=== PATIENT | male | born 1950 | race Caucasian/White ===

== ENCOUNTER 2017-09-18 07:51 | Observation (INO) | payer MEDICARE ==
[2017-09-14 14:50] LABS: BASOPHILS % 0.4 % (0.0-1.0); EOSINOPHILS # (AUTO) 0.1 (0.0-0.4); EOSINOPHILS % 1.5 % (0.0-6.0); HEMATOCRIT 43.4 % (38.2-49.6); HEMOGLOBIN 14.5 g/dL (14.0-18.0); LYMPHOCYTES # (AUTO) 1.5 (1.0-3.2); MEAN CORPUSCULAR HEMOGLOBIN 30.1 pg (28-32); MEAN CORPUSCULAR HGB CONC 33.4 g/dL (31-35); MONOCYTES % 13.3 % (4.4-11.3); NEUTROPHILS # (AUTO) 5.1 (2.1-6.9); NEUTROPHILS % 65.5 % (38.7-80.0); PLATELET COUNT 368 x10e3/uL (140-360); RED BLOOD COUNT 4.82 x10e6/uL (4.3-5.7); RED CELL DISTRIBUTION WIDTH 13.9 % (11.7-14.4)
[2017-09-14 15:06] LABS: INR 0.99; PROTHROMBIN TIME 12.3 seconds (11.9-14.5)
[2017-09-14 15:07] LABS: PARTIAL THROMBOPLASTIN TIME 29.2 seconds (23.8-35.5)
[2017-09-14 15:13] LABS: ALANINE AMINOTRANSFERASE 26 IU/L (0-55); ALBUMIN/GLOBULIN RATIO 1.1 (0.8-2.0); ALKALINE PHOSPHATASE 92 IU/L (40-150); ANION GAP 14.9 mmol/L (8-16); BLOOD UREA NITROGEN 13 mg/dL (7-26); BUN/CREATININE RATIO 12 (6-25); CALCIUM 9.5 mg/dL (8.4-10.2); CARBON DIOXIDE 30 mmol/L (22-29); CHLORIDE 99 mmol/L (98-107); CREATININE, SERUM 1.13 mg/dL (0.72-1.25); EST GLOMERULAR FILTRATION RATE > 60 ML/MIN (60-); GLUCOSE 105 mg/dL (74-118); POTASSIUM 4.9 mmol/L (3.5-5.1); SODIUM 139 mmol/L (136-145)
--- NOTE | 2017-09-14 15:30 | Diagnostic Imaging Report ---
PROCEDURE: Frontal and lateral views of the chest. COMPARISON: None. INDICATIONS: PRE-OP FOR BIOPSY ON PROSTATE FINDINGS: Lines/tubes: None. Lungs: The lungs are well inflated and clear. There is no evidence of pneumonia or pulmonary edema. Pleura: There is no pleural effusion or pneumothorax. Heart and mediastinum: Coronary artery stent. Mild calcifications of the aortic arch. Otherwise, the heart and the mediastinum are normal. Bones: No acute bony abnormality. Mild degenerative changes of the thoracic spine. IMPRESSION: No acute cardiopulmonary disease. Dictated by: Harrison Alberts M.D. on 09/14/2017 at 15:30 Electronically approved by: Harrison Alberts M.D. on 09/14/2017 at 15:30
[~2017-09-18] VITALS: Ht 180.3 cm; Wt 68.3 kg
[~2017-09-18 07:51] MED LIST: ASPIRIN81 MG PO; ATORVASTATIN CA20 MG PO; CLOPIDOGREL75 MG PO; LISINOPRIL2.5 MG PO; METFORMIN HCL1000 MG PO; METOPROLOL TART25 MG PO; METRONIDAZOLE500 MG PO
--- OUTSIDE RECORDS SUMMARY | 2017-09-18 07:53 | XMS REPORT | Clinical Summary ---
Author Author [facility] Organization [facility] Address Unknown Phone Unavailable Care Team Providers Care Nurse Obgyn Name Role Phone Isaac Wilson MD PCP Allergies Active Allergy Reactions Severity Noted Date Comments Penicillins 12/03/2015 Current Medications Prescription Sig. Disp. Refills Start End Date Status Date atorvastatin (LIPITOR) 40 TK ONE T HS 3 12/25/19 Active MG tablet 16 clopidogrel (PLAVIX) 75 TK ONE T DAILY 3 12/25/19 Active mg tablet 16 lisinopril TK ONE T DAILY 3 12/25/19 Active (PRINIVIL,ZESTRIL) 2.5 MG 16 tablet metFORMIN (GLUCOPHAGE) TK 1 T PO BID 1 03/05/20 Active 1000 MG tablet 16 metoprolol tartrate 2 (two) times a day. Active (LOPRESSOR) 25 MG tablet aspirin (ECOTRIN) 81 MG aspirin 81 mg Active enteric coated tablet tablet,delayed release sodium,potassium,mag Please use as directed 2 Bottle 0 04/25/20 Active sulfates (SUPREP BOWEL 16 PREP KIT) 17.5-3.13-1.6 gram recon soln Active Problems Problem Noted Date Elevated PSA 03/13/2016 Impaired fasting glucose 12/03/[address] [place] artery 12/03/2015 Family History Medical History Relation Name Comments Cancer Father Lung cancer Father No Known Problems Mother Relation Name Status Comments Father lung cancer (Age 60's) Mother Social History Tobacco Use Types Packs/Day Years Used Date Current Every Day Smoker Cigarettes 1 Smokeless Tobacco: Never Used Alcohol Use Drinks/Week oz/Week Comments Yes 21 Cans of 12.6 beer Sex Assigned at Date Recorded Not on file Last Filed Vital Signs Not on file Plan of Treatment Health Maintenance Due Date Last Done Comments COLONOSCOPY 2002 ZOSTER VACCINE 2012 INFLUENZA VACCINE 02/17/2017 PNEUMOCOCCAL 2017 POLYSACCHARIDE VACCINE AGE 65 AND OVER PNEUMOCOCCAL-13 2017 Results Not on fileafter 09/17/2016 Insurance Payer Benefit Subscriber ID Type Phone Address Plan / Group HUMANA HUMANA xxxxxxxxx PPO CHOICE CARE PPO
--- OUTSIDE RECORDS SUMMARY | 2017-09-18 07:53 | XMS REPORT ---
[facility] Address Unknown Phone Unavailable Care Team Providers Care Green Hide Inspector Name Role Phone AMBROCIO DAVIDSON Unavailable Unavailable Problems This patient has no known problems. Allergies, Adverse Reactions, Alerts This patient has no known allergies or adverse reactions. Medications This patient has no known medications. Results Test Description Test Time Test Comments Text Results Atomic Results Result Comments CHEST 2 VIEWS [place] [address] Patient Name: LATRICE GONZALEZ MR #: [id number] : 1950 Age/Sex: 67/M Req # : [id number] Adm Physician: Ordered by: AMBROCIO DAVIDSON MD Report #: [id number] Location: OR Room/Bed: Procedure: [id number] DX/CHEST 2 VIEWS Exam Date: 09/14/17 Exam Time: 1445 REPORT STATUS: Signed PROCEDURE: Frontal and lateral views of the chest. COMPARISON: None. INDICATIONS: PRE-OP FOR BIOPSY ON PROSTATE FINDINGS: Lines/tubes: None. Lungs: The lungs are well inflated and clear. There is no evidence of pneumonia or pulmonary edema. Pleura: There is no pleural effusion or pneumothorax. Heart and mediastinum: Coronary artery stent. Mild calcifications of the aortic arch. Otherwise, the heart and the mediastinum are normal. Bones: No acute bony abnormality. Mild degenerative changes of the thoracic spine. IMPRESSION: No acute cardiopulmonary disease. Dictated by: Harrison Orozco M.D. on 09/14/2017 at 15:30 Electronically approved by: Harrison Orozco M.D. on 09/14/2017 at 15:30 Dictated By: HARRISON OROZCO MD [id number] Transcribed By: SCOTT on 09/14/17 1530 COPY TO: AMBROCIO DAVIDSON MD
[2017-09-18] MEDS ORDERED: LEVOFLOXACIN 500MG/D5W 100ML 100 ML IV ONE (08:34)
[2017-09-18] MEDS ORDERED: BELLADONNA/OPIUM 60 MG SUPP PR ONE (13:11)
[2017-09-18] MEDS ORDERED: HYDROCODONE/APAP 7.5MG-325MG 1 EA TAB PO PRN (14:00)
[2017-09-18] MEDS: LEVOFLOXACIN 500MG/D5W 100ML 100 ML IV SCH (14:00)
--- NOTE | 2017-09-18 14:18 | Operative Report ---
DATE OF PROCEDURE: September 18, 2017 PREOPERATIVE DIAGNOSIS: Elevated prostate-specific antigen. POSTOPERATIVE DIAGNOSIS: Elevated prostate-specific antigen. OPERATION PERFORMED: Ultrasound-directed transrectal prostate biopsy. ANESTHESIA: General. INDICATIONS: This patient is a 67-year-old white male with a PSA of 12.2. He is here for a prostate biopsy. The procedure was done in the following fashion. DESCRIPTION OF PROCEDURE: The patient was taken to the operating room and placed under IV sedation and monitored anesthesia care and placed in the lateral decubitus position with the right side up. An ultrasound scan of the prostate was then performed. The patient had a small prostate estimated about 20 grams in size. The seminal vesicles appeared normal. No discrete hypoechoic areas were identified. Sextant biopsies of the prostate were performed through the ultrasound probe using the Pixtr spring-loaded biopsy gun. Specimens were taken from the right base lateral, then right base medial, then right mid lateral, then right mid medial, then right apex lateral, then right apex medial, then left base lateral, then left base medial, then left mid lateral, then left mid medial, then left apex lateral, then left apex medial. Once this was accomplished, the ultrasound probe was withdrawn. The patient was returned to a supine position and a 16-[place] Knott catheter inserted. The patient tolerated the procedure well and left the operating room in good condition. The plan at this time is to keep him in the hospital overnight on IV antibiotics and remove the Knott catheter in the morning. Job#: [id number]
[2017-09-18] MEDS ORDERED: FENTANYL CITRATE/PF 100MCG/2 ML INJ ONE ×2 (14:19→14:32)
[2017-09-18] MEDS ORDERED: MIDAZOLAM HCL 2 MG/2 ML VIAL ONE (14:32)
--- OUTSIDE RECORDS SUMMARY | 2017-09-18 14:33 | XMS REPORT | Clinical Summary ---
Author Author [facility] Address Unknown Phone Unavailable Care Team Providers Care Animal Care Supervisor Name Role Phone Isaac Wilson MD PCP [...] Impaired fasting glucose 12/03/2015 Coronary arteriosclerosis in [place] artery 12/03/2015 Family History Medical History Relation [...]
[2017-09-18 14:43] VITALS: BP 122/65
[2017-09-18 15:07] VITALS: BP 122/65
[2017-09-18 16:00] VITALS: BP 107/58
[2017-09-18] MEDS: SODIUM CHLORIDE 0.9% 1000ML 1,000 ML IV SCH (16:53)
[2017-09-18] MEDS: METRONIDAZOLE 500 MG TAB PO SCH ×2 (16:59→20:05)
[2017-09-18] MEDS: METOPROLOL TARTRATE 25 MG TAB PO SCH (16:59)
[2017-09-18] MEDS ORDERED: DEXTROSE 50% SYRINGE 50 ML IV PRN (17:00)
[2017-09-18] MEDS: DOCUSATE SODIUM 100 MG CAP PO SCH (17:00)
[2017-09-18] MEDS ORDERED: PROPOFOL IV EMULSION 10 MG/ML 20 ML VIAL ONE (19:51)
[2017-09-18] MEDS ORDERED: LIDOCAINE HCL 2% LOCAL INJ 5 ML SDV VIAL INJ ONE (19:51)
[2017-09-18 20:00] VITALS: BP_SYST 101; BP_SYST 151; BP_DIAS 54; BP_DIAS 59; BP_DIAS 78
[2017-09-18] MEDS ORDERED: ATORVASTATIN 20 MG TAB PO SCH (21:00)
[2017-09-18] MEDS: INSULIN REGULAR, HUMAN 100 UNIT/1 ML 3ML VIAL SQ SCH (21:00)
[2017-09-19] VITALS: BP 107/56
[2017-09-19] MEDS: SODIUM CHLORIDE 0.9% 1000ML 1,000 ML IV SCH ×2 (02:33→10:00)
[2017-09-19 04:00] VITALS: BP 107/55
[2017-09-19] MEDS: INSULIN REGULAR, HUMAN 100 UNIT/1 ML 3ML VIAL SQ SCH ×2 (07:30→11:30)
[2017-09-19 08:13] VITALS: BP 118/72
[2017-09-19] MEDS: DOCUSATE SODIUM 100 MG CAP PO SCH (08:48)
[2017-09-19] MEDS: METRONIDAZOLE 500 MG TAB PO SCH (08:48)
[2017-09-19] MEDS: METOPROLOL TARTRATE 25 MG TAB PO SCH (08:49)
[2017-09-19] MEDS ORDERED: CLOPIDOGREL BISULFATE 75 MG TAB PO SCH (09:00)
[2017-09-19] MEDS ORDERED: METFORMIN HCL 500 MG TAB CR PO SCH (09:00)
[2017-09-19] MEDS ORDERED: ASPIRIN 81 MG CHEW TAB PO SCH (09:00)
[2017-09-19] MEDS ORDERED: LISINOPRIL 2.5 MG TAB PO SCH (09:00)
[2017-09-19] MEDS ORDERED: NON-FORMULARY MEDICATION (Metformin Hcl 1,000 MG) PO SCH (09:00)
[2017-09-19 11:41] VITALS: BP 100/59
[2017-09-19] MEDS ORDERED: LEVAQUIN500 MG PO (12:19)
--- NOTE | 2017-09-19 13:44 | Progress Note ---
DATE: September 19, 2017 The patient is now one day status post ultrasound-directed transrectal prostate biopsy. He is afebrile. The Knott catheter has been removed. He is voiding without difficulty. My plan at this time is to discharge the patient. He will go home on Levaquin 500 mg one p.o. daily for 10 days and he will complete his course of Flagyl at home. He will have a return appointment to see me again in 2 weeks to go over the results of the prostate biopsy. Job#: [id number]
[2017-09-19] MEDS: LEVOFLOXACIN 500MG/D5W 100ML 100 ML IV SCH (14:00)
--- NOTE | 2017-09-19 14:27 | Consultation ---
DATE OF CONSULTATION: September 19, 2017 INTERNAL MEDICINE CONSULTATION REASON FOR CONSULTATION: Internal medicine management. HISTORY OF PRESENT ILLNESS: This is a 67-year-old male with history of diabetes and hypertension, who was admitted overnight for a prostate biopsy. The patient is being admitted under Dr. Tsang, urology in [place]. The patient reports having longstanding hypertension for many years on medications. He also has known diabetes, but well controlled on a diet and also oral metformin. He denies any chest pain, palpitations, nausea, vomiting or any other complaints. The patient is being evaluated at the bedside on the medical floor currently doing well with no complaints. REVIEW OF SYSTEMS: Pertinent positives: Here for prostate biopsy. Pertinent negatives: Denies any chest pain, palpitations, nausea, vomiting, diarrhea, dysuria, hematuria, frequency, urgency, lightheadedness, dizziness, abdominal pain, headaches, shortness of breath or any other complaints. Rest of the 14-point review of systems have been reviewed with the patient and are negative. ALLERGIES: PENICILLIN. HOME MEDICATIONS: He takes aspirin 81 mg daily, Lipitor 20 mg daily, Plavix 75 mg daily, Colace 100 mg twice daily, lisinopril 2.5 mg daily, metformin 1000 mg daily, Lopressor 25 mg p.o. b.i.d. PAST MEDICAL HISTORY: Hypertension, diabetes, hyperlipidemia. PAST SURGICAL HISTORY: Recent prostate biopsy. FAMILY HISTORY: Hypertension, diabetes. SOCIAL HISTORY: No drugs, no alcohol, currently not a smoker. Good social support. . PHYSICAL EXAMINATION VITAL SIGNS: Temperature 97, pulse 80, respiratory rate 18, blood pressure 118/72, pulse oximetry 96% on room air. GENERAL: In no acute distress, alert and oriented x3, cooperative on examination. HEENT: Head is normocephalic, atraumatic. Eyes: Pupils equal, round and reactive to light bilaterally. Extraocular movements intact bilaterally. Throat with no evidence of any erythema or exudates in the posterior pharynx. Has poor dentition. NECK: Supple with good range of motion. PULMONARY: Clear to auscultation bilaterally with no wheezing or rhonchi. No crackles appreciated. CARDIOVASCULAR: Positive S1 and S2, no murmurs, rubs or gallops appreciated. ABDOMEN: Soft, nondistended, nontender on palpation. Bowel sounds were present. MUSCULOSKELETAL: Strength 5/5 throughout, no evidence of musculoskeletal deficit on exam. No weakness appreciated. NEUROLOGIC: Cranial nerves II-XII grossly intact. No evidence of any neurological deficits on examination. SKIN: Intact. Warm to touch. Good capillary refill. EXTREMITIES: No edema. Good range of motion throughout. PSYCHIATRIC: Normal affect and mood. LABORATORY DATA: White count 7.8, hemoglobin 14.5, hematocrit 43, platelets 368,000. Coagulation: PT 12, INR 0.99, PTT 29. Chemistry: Sodium 139, potassium 4.9, chloride 99. Bicarb is 30. Anion gap of 14. BUN 13, creatinine 1.1. Glucose ____ is 100. Calcium 9.5. LFTs are normal. BUN is 4. Microbiology: None. IMAGING: Chest x-ray with no acute cardiopulmonary disease. IMPRESSION 1. Status post prostate biopsy, being managed by urology, now with Knott catheter removal. 2. Hypertension. 3. Type 2 diabetes. 4. Hyperlipidemia. PLAN: Continue same home meds of antihypertensives and anti-glycemic medications. Labs were reviewed and are stable. Currently, his glucose is well managed, and his blood pressure is stable. Will continue the same regimen. Continue with antibiotics per urology. From my standpoint, he is clear to be discharged once cleared by urology. Thank you so much for this consultation. Job#: [id number] JUAQUIN
== END 2017-09-19 14:05 | disposition home or self-care (01) ==
LOC: OR 07:51 → IMCU 14:30
PROVIDERS: ADMIT Urology; ATTEND Urology
DX: R97.20 Elevated prostate specific antigen [PSA] (principal); N41.0 Acute prostatitis; K64.4 Residual hemorrhoidal skin tags; I25.10 Atherosclerotic heart disease of native coronary artery without angina pectoris; E11.9 Type 2 diabetes mellitus without complications; I10 Essential (primary) hypertension; Z88.0 Allergy status to penicillin; E78.5 Hyperlipidemia, unspecified; N41.1 Chronic prostatitis
CPT/HCPCS: 36415 ×3; 55700; 71046; 76872; 76942; 80053; 82948 ×2; 85025; 85610; 85730; 88305; G0378 ×2; J1956 ×2; J2001; J2250; J7030 ×2

== ENCOUNTER 2018-11-26 10:41 | Observation (INO) | payer BC, MEDICARE ==
[2018-11-22 12:51] LABS: INR 0.81; PARTIAL THROMBOPLASTIN TIME 28.1 seconds (23.8-35.5); PROTHROMBIN TIME 11.6 seconds (11.9-14.5)
[2018-11-22 13:01] LABS: ALANINE AMINOTRANSFERASE 34 IU/L (0-55); ALBUMIN 3.7 g/dL (3.5-5.0); ALBUMIN/GLOBULIN RATIO 1.1 (0.8-2.0); ALKALINE PHOSPHATASE 110 IU/L (40-150); ANION GAP 12.6 mmol/L (8-16); BLOOD UREA NITROGEN 13 mg/dL (7-26); BUN/CREATININE RATIO 13 (6-25); CALCIUM 10.1 mg/dL (8.4-10.2); CARBON DIOXIDE 30 mmol/L (22-29); CHLORIDE 98 mmol/L (98-107); CREATININE, SERUM 1.02 mg/dL (0.72-1.25); EST GLOMERULAR FILTRATION RATE > 60 ML/MIN (60-); GLUCOSE 91 mg/dL (74-118); POTASSIUM 4.6 mmol/L (3.5-5.1); SODIUM 136 mmol/L (136-145)
--- NOTE | 2018-11-22 13:24 | Diagnostic Imaging Report ---
EXAMINATION: PA and lateral views of the chest. COMPARISON: None CLINICAL HISTORY: Preoperative study for urological procedure DISCUSSION: Lines/tubes: None. Lungs: The lungs are well inflated and clear. There is no evidence of pneumonia or pulmonary edema. Symmetric nodular opacities project over the lung bases compatible with nipple shadows Pleura: There is no pleural effusion or pneumothorax. Heart and mediastinum: The cardiomediastinal silhouette is normal. Coronary artery stents. Bones and soft tissues: No acute bony abnormalities. Degenerative changes in the thoracic spine IMPRESSION: No acute cardiopulmonary abnormalities. Signed by: Dr. Sj Portillo M.D. on 11/22/2018 1:21 PM
[~2018-11-26] VITALS: Ht 180.3 cm; Wt 65.8 kg
[~2018-11-26 10:41] MED LIST changes: +LEVAQUIN500 MG PO
--- OUTSIDE RECORDS SUMMARY | 2018-11-26 10:44 | XMS REPORT | Clinical Summary ---
Author Author [facility] Organization [facility] Address Unknown Phone Unavailable Care Team Providers Care Electronic Semiconductor Processor Name Role Phone Kesha Arteaga MD PCP Allergies Comments Active Allergy Reactions Severity Noted Date Penicillins 12/03/2015 Medications End Date Status Medication Sig Dispensed Refills Start Date Active clopidogrel (PLAVIX) 75 TK ONE T 3 mg tablet DAILY 6 Active lisinopril TK ONE T 3 (PRINIVIL,ZESTRIL) 2.5 MG DAILY 6 tablet Active metFORMIN (GLUCOPHAGE) TK 1 T PO BID 1 1000 MG tablet 6 Active metoprolol tartrate 2 (two) times 0 (LOPRESSOR) 25 MG tablet a day. Active aspirin (ECOTRIN) 81 MG aspirin 81 mg 0 enteric coated tablet tablet,delaye d release Active atorvastatin (LIPITOR) 20 Bedtime 0 MG tablet Active budesonide-formoterol Inhale 2 1 Inhaler 3 (SYMBICORT) 160-4.5 puffs 2 (two) 8 mcg/actuation inhaler times a day. Active varenicline (CHANTIX ELAINA) Take 0.5 mg 53 tablet 0 0.5 mg (11)- 1 mg (42) one daily on 8 tablet days 1-2 and 0.5 mg twice daily on days 4-7. Then 1 mg twice daily for a total of 12 weeks. Active tiotropium-olodaterol Take 2 4 g 6 (STIOLTO RESPIMAT) inhalations 8 2.5-2.5 mcg/actuation by mouth once inhalation solution daily. 05/18/2019 Active albuterol (PROAIR Inhale 2 18 g 11 HFA,PROVENTIL puffs every 6 8 HFA,VENTOLIN HFA) 90 (six) hours mcg/actuation inhaler as needed for wheezing. 05/05/2018 Discontinued atorvastatin (LIPITOR) 40 TK ONE T HS 3 MG tablet 6 05/18/2018 Discontinued sodium,potassium,mag Please use as 2 Bottle 0 sulfates (SUPREP BOWEL directed 6 PREP KIT) 17.5-3.13-1.6 gram recon soln 05/18/2018 Discontinued metroNIDAZOLE (FLAGYL) Three Times A 0 500 MG tablet Day 06/17/2018 nicotine (NICODERM CQ) 21 Place 1 patch 30 patch 0 mg/24 hr on the skin 8 daily for 30 days. Active Problems Problem Noted Date Other emphysema 05/05/2018 Elevated PSA 03/13/2016 Impaired fasting glucose 12/03/2015 Coronary arteriosclerosis in [place] artery 12/03/2015 Encounters Care Team Description Date Type Specialty Mark Tovar MD Smoking (Primary Dx) 08/18/2018 Office Visit Pulmonology Mark Tovar MD History of smoking 30 or more pack years 05/21/2018 Hospital Radiology Encounter Mark Tovar MD Abnormal PFTs (pulmonary function tests); History of smoking 30 or more pack years 05/18/2018 Office Visit Pulmonology Kesha Arteaga MD Abnormal PFTs (pulmonary function tests) (Primary Dx); History of smoking 30 or more pack years 05/05/2018 Office Visit Family Medicine Silvano Yoo MD Shortness of breath 04/23/2018 Hospital Radiology Encounter Silvano Yoo MD Shortness of breath 04/23/2018 Hospital Pulmonology Encounter Silvano Yoo MD Shortness of breath (Primary Dx) 04/20/2018 Transcribe Access Orders after 11/25/2017 Family History Medical History Relation Name Comments Cancer Father Lung cancer Father No Known Problems Mother Relation Name Status Comments Father lung cancer (Age 60's) Mother Social History Date Tobacco Use Types Packs/Day Years Used Started: 05/18/1970 Current Every Day Smoker Cigarettes 1 Smokeless Tobacco: Never Used Comments: 1 pack per day Alcohol Use Drinks/Week oz/Week Comments Yes 21 Cans of 12.6 beer Sex Assigned at Date Recorded Not on file Industry Job Start Date Occupation Not on file Not on file Not on file Travel End Travel History Travel Start No recent travel history available. 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 Blood Pressure 121/68 08/18/2018 2:46 PM FELLING BUCKING SUPERVISOR Pulse 76 08/18/2018 2:46 PM FELLING BUCKING SUPERVISOR Temperature 36.5 C (97.7 F) 08/18/2018 2:46 PM FELLING BUCKING SUPERVISOR Respiratory Rate 14 08/18/2018 2:46 PM FELLING BUCKING SUPERVISOR Oxygen Saturation 93% - Inhaled Oxygen - Concentration 08/18/2018 2:46 PM FELLING BUCKING SUPERVISOR Weight 66.7 kg (147 lb) 08/18/2018 2:46 PM FELLING BUCKING SUPERVISOR Height 180.3 cm (5' 11") 08/18/2018 2:46 PM FELLING BUCKING SUPERVISOR Body Mass Index 20.5 Plan of Treatment Care Team Description Date Type Specialty Mark Tovar MD [address] [address] [phone] 06/06/2019 Office Visit Pulmonology Health Maintenance Due Date Last Done Comments COLON CANCER SCREENING 2002 SHINGLES VACCINES (#1) 2002 65+ PNEUMOCOCCAL VACCINE 2017 (1 of 2 - PCV13) PNEUMOCOCCAL 2017 POLYSACCHARIDE VACCINE AGE 65 AND OVER INFLUENZA VACCINE 02/17/2019 Procedures Comments Procedure Name Priority Date/Time Associated Diagnosis CT CHEST LUNG CANCER Routine 05/21/2018 History of smoking 30 or SCREENING 4:17 PM CDT more pack years XR CHEST 2 VW Routine 04/23/2018 Shortness of breath 12:54 PM CDT SPIROMETRY PRE AND POST Routine 04/23/2018 Shortness of breath WITH BRONCHILATOR 11:38 AM CDT after 11/25/2017 Results * CT Chest Lung Cancer Screening (05/21/2018 4:17 PM CDT) Narrative Performed At EXAMINATION: [facility] CT CHEST LUNG CANCER SCREENING CLINICAL HISTORY: The patient qualifies for lung cancer screening by meeting the following criteria: 1. Patient is age 55-75 years 2. Patient has smoked in approximately 30 pack years 3. Patient is a current or a former smoker who has quit within the last 15 years 4. Patient is asymptomatic 5. Patient has not had a CT scan of the chest within the last year 6. Patient has no known history of [place] lung cancer within the last 5 years Patient has participated in a shared decision making session; including explanation on benefits and harms of screening, follow-up diagnostic testing, over diagnosis, false-positive rate, and total radiation exposure. Patient has received counseling on the importance of maintaining cigarette smoking abstinence and if appropriate, has received information on smoking cessation interventions. TECHNIQUE: Multiple axial images of the chest were obtained without intravenous contrast.Sagittal and coronal computerized reformatted images were also obtained. The study was performed using low-dose lung cancer screening protocol. COMPARISON: None. FINDINGS: No pulmonary nodule or mass is seen. There is no evidence of emphysematous changes. No pneumothorax is intact. No consolidation or pleural effusion is identified. No pathologic lymphadenopathy is seen. LAD stent is noted. The heart is normal in size. No pericardial effusion is seen. The image portion of the upper abdominal viscera is unremarkable. IMPRESSION: Negative CT lung cancer screening exam. Lung RADS category: I Recommendation: Continue annual screening with LDCT in 12 months. Explanation of the Lung-Rads categories can be found at: http://www.acr.org/-/media/ACR/Documents/PDF/QualitySafety/Resources/LungRads/As sessmentCategories [facility] [id number] Procedure Note Hm Interface, Radiology Results Incoming - 05/21/2018 5:30 PM CDT EXAMINATION: CT CHEST LUNG CANCER SCREENING CLINICAL HISTORY: The patient qualifies for lung cancer screening by meeting the following criteria: 1. Patient is age 55-75 years 2. Patient has smoked in approximately 30 pack years 3. Patient is a current or a former smoker who has quit within the last 15 years 4. Patient is asymptomatic 5. Patient has not had a CT scan of the chest within the last year 6. Patient has no known history of [place] lung cancer within the last 5 years Patient has participated in a shared decision making session; including explanation on benefits and harms of screening, follow-up diagnostic testing, over diagnosis, false-positive rate, and total radiation exposure. Patient has received counseling on the importance of maintaining cigarette smoking abstinence and if appropriate, has received information on smoking cessation interventions. TECHNIQUE: Multiple axial images of the chest were obtained without intravenous contrast. Sagittal and coronal computerized reformatted images were also obtained. The study was performed using low-dose lung cancer screening protocol. COMPARISON: None. FINDINGS: No pulmonary nodule or mass is seen. There is no evidence of emphysematous changes. No pneumothorax is intact. No consolidation or pleural effusion is identified. No pathologic lymphadenopathy is seen. LAD stent is noted. The heart is normal in size. No pericardial effusion is seen. The image portion of the upper abdominal viscera is unremarkable. IMPRESSION: Negative CT lung cancer screening exam. Lung RADS category: I Recommendation: Continue annual screening with LDCT in 12 months. Explanation of the Lung-Rads categories can be found at: http://www.acr.org/-/media/ACR/Documents/PDF/QualitySafety/Resources/LungRads/AssessmentCategories [facility]-[id number] Performing Organization Address [facility] [place] Number [facility] [address] [place] [address] * XR Chest 2 Vw (04/23/2018 12:54 PM CDT) Narrative Performed At EXAMINATION:XR CHEST 2 VW RADIANT CLINICAL HISTORY:R06.02 Shortness of breath, SOB COMPARISON:Chest x-ray 10/23/2015 IMPRESSION: Frontal and lateral views reveal a stable cardiomediastinal silhouette. Coarse interstitial markings persist throughout the lungs although without a consolidative process. Pleural margins are sharp. The remainder of the examination is unchanged. [facility]-[id number] Procedure Note Interface, Radiology Results Incoming - 04/23/2018 1:00 PM CDT EXAMINATION: XR CHEST 2 VW CLINICAL HISTORY: R06.02 Shortness of breath, SOB COMPARISON: Chest x-ray 10/23/2015 IMPRESSION: Frontal and lateral views reveal a stable cardiomediastinal silhouette. Coarse interstitial markings persist throughout the lungs although without a consolidative process. Pleural margins are sharp. The remainder of the examination is unchanged. [facility]-[id number] Performing Organization Address [facility] Phone Number [facility] [address] [place] [address] * Spirometry pre & post w/ bronchodilator (04/23/2018 11:38 AM CDT) FEV1 Post 1.57 2.75 - 4.38 L [facility] FEV1/FVC % Post 49.60 64.96 - 84.31 % [facility] MVV Post 62.28 114.91 - 155.46 L/min [facility] FVC Post 3.16 3.82 - 5.73 L [facility] PEF Post 3.35 6.67 - 11.43 L/s [facility] FEF 25-75% Post 0.61 1.18 - 4.46 L/s [facility] FEV1 Pre 1.39 2.75 - 4.38 L [facility] FEV1/FVC % Pre 49.34 64.96 - 84.31 % [facility] MVV Pre 50.12 114.91 - 155.46 L/min [facility] FVC Pre 2.83 3.82 - 5.73 L [facility] PEF Pre 3.15 6.67 - 11.43 L/s [facility] FEF 25-75% Pre 0.60 1.18 - 4.46 L/s [facility] FEV1 Predicted 3.56 [facility] FEV1 LLN 2.75 [facility] FEV1 % Pre of Predicted 39.1 % [facility] FEV1 % Post of Predicted 43.9 % [facility] FEV1 % Change 12.2 % [facility] FVC Predicted 4.77 [facility] FVC LLN 3.82 [facility] FVC % Pre of Predicted 59.2 % [facility] FVC % Post of Predicted 66.1 % [facility] FVC % Change 11.6 % [facility] FEV1/FVC % Predicted 75 [facility] FEV1/FVC % LLN 65 [facility] FEV1/FVC % Pre of 66.1 % [facility] Predicted FEV1/FVC % Post of 66.5 % [facility] Predicted FEV1/FVC % Change 0.5 % [facility] FEF 25-75% Predicted 2.82 [facility] FEF 25-75% LLN 1.18 [facility] FEF 25-75% % Pre of 21.1 % [facility] Predicted FEF 25-75% % Post of 21.6 % [facility] Predicted FEF 25-75% % Change 2.2 % [facility] PEF Predicted 9.05 [facility] PEF LLN 6.67 [facility] PEF % Pre of Predicted 34.8 % [facility] PEF % Post of Predicted 37.0 % [facility] PEF % Change 6.3 % [facility] MIP Predicted 84.89 [facility] MIP LLN 31.98 [facility] MEP Predicted 133.64 [facility] MEP LLN 82.61 [facility] MVV Predicted 135 [facility] MVV LLN 115 [facility] MVV % Pre of Predicted 37.1 % [facility] MVV % Post of Predicted 46.1 % [facility] MVV Change 24.3 % [facility] Procedure Note Surya Miranda MD - 04/23/2018 12:00 AM T [place], [place] PULMONARY FUNCTION REPORT PATIENT NAME: LATRICE GONZALEZ ENCOUNTER NO: [id number] DATE OF : 1950 DATE OF ADMISSION: 04/23/2018 DATE OF PROCEDURE: 04/23/2018 ADMITTING PHYSICIAN: SILVANO YOO MD RENDERING PROVIDER: SURYA MIRANDA MD PULMONARY FUNCTION TESTING: SPIROMETRY: Spirometry demonstrates evidence of severe obstruction. FEV1 was 1.39 liters or 39.1% predicted and FVC was 2.83 liters or 59.2% predicted in the setting of decreased FEV1/FVC ratio. Additionally, the decreased FVC suggests either concomitant restriction versus hyperinflation. After bronchodilator administration, there was a mild but not statistically significant change in FEV1 of 12% and FVC change of 11.6%. Flow volume loop with scooped up expiratory limb with normal expiratory limb often seen in emphysema. SUMMARY: Severe obstruction with a mild bronchodilator response. Additional restriction versus hyperinflation is suspected by the decreased forced vital capacity. Clinical correlation is recommended, which may include full pulmonary function testing with lung volumes if indicated. [id number] Conf/ / Ref#: [id number] CC: [id number]/SILVANO YOO MD Performing Organization Address City/State/Zipcode Phone Number [facility] [address] [place] [address] after 11/25/2017 Insurance Payer Benefit Subscriber ID Type Phone Address Plan / Group [facility] MEDICARE BLUE xxxxxxxxxxxx PPO MEDICARE ADVANTAGE PPO Advance Directives Patient has advance care planning documents on file. For more information, sunil rojas contact: Chet Cartagena [address] [place] [address]
[2018-11-26] MEDS ORDERED: LEVOFLOXACIN 500MG/D5W 100ML 100 ML IV ONE (11:00)
--- OUTSIDE RECORDS SUMMARY | 2018-11-26 12:42 | XMS REPORT | Clinical Summary ---
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 Blood Pressure 121/68 08/18/2018 2:46 PM AIRBRUSH ARTIST PHOTOGRAPHY Pulse 76 08/18/2018 2:46 PM AIRBRUSH ARTIST PHOTOGRAPHY Temperature 36.5 C (97.7 F) 08/18/2018 2:46 PM AIRBRUSH ARTIST PHOTOGRAPHY Respiratory Rate 14 08/18/2018 2:46 PM AIRBRUSH ARTIST PHOTOGRAPHY Oxygen Saturation 93% - Inhaled Oxygen - Concentration 08/18/2018 2:46 PM AIRBRUSH ARTIST PHOTOGRAPHY Weight 66.7 kg (147 lb) 08/18/2018 2:46 PM AIRBRUSH ARTIST PHOTOGRAPHY Height 180.3 cm (5' 11") 08/18/2018 2:46 PM AIRBRUSH ARTIST PHOTOGRAPHY Body Mass Index 20.5 Plan of Treatment Care Team Description Date Type Specialty Mark Tovar MD [address] [address] [phone] 06/06/2019 Office Visit Pulmonology Health Maintenance Due [...] 4:17 PM CDT) Narrative Performed At EXAMINATION: [facility] CT CHEST LUNG CANCER SCREENING [...] 6. Patient has no known history of [place] lung cancer within the last 5 years [...] categories can be found at: http://www.acr.org/-/media/ACR/Documents/PDF/QualitySafety/Resources/LungRads/As sessmentCategories [facility] [place]-[id number] Procedure Note Hm Interface, Radiology Results Incoming [...] 6. Patient has no known history of [place] lung cancer within the last 5 years [...] Lung-Rads categories can be found at: http://www.acr.org/-/media/ACR/Documents/PDF/QualitySafety/Resources/LungRads/AssessmentCategories [facility] [place]-[id number] Performing Organization Address [facility] [place] Phone Number [facility] [address] [place] [address] * XR Chest 2 Vw (04/23/2018 12:54 PM CDT) Narrative Performed At EXAMINATION:XR CHEST 2 VW RADIANT CLINICAL HISTORY:R06.02 Shortness of breath, SOB COMPARISON:Chest x-ray 10/23/2015 IMPRESSION: Frontal and lateral views reveal a stable cardiomediastinal silhouette. Coarse interstitial markings persist throughout the lungs although without a consolidative process. Pleural margins are sharp. The remainder of the examination is unchanged. [facility]-[id number] Procedure Note Interface, Radiology Results Incoming - 04/23/2018 1:00 PM CDT EXAMINATION: XR CHEST 2 VW CLINICAL HISTORY: R06.02 Shortness of breath, SOB COMPARISON: Chest x-ray 10/23/2015 IMPRESSION: Frontal and lateral views reveal a stable cardiomediastinal silhouette. Coarse interstitial markings persist throughout the lungs although without a consolidative process. Pleural margins are sharp. The remainder of the examination is unchanged. [facility]-[id number] Performing Organization Address [facility] Phone Number [facility] [address] [place] [address] * Spirometry pre & post w/ bronchodilator (04/23/2018 11:38 AM CDT) FEV1 Post 1.57 2.75 - 4.38 L [facility] FEV1/FVC % Post 49.60 64.96 - [...] Miranda MD - 04/23/2018 12:00 AM T [place], [place] PULMONARY FUNCTION REPORT PATIENT NAME: LATRICE GONZALEZ ENCOUNTER NO: [id number] DATE OF : 1950 DATE OF ADMISSION: [...] function testing with lung volumes if indicated. [id number] Conf/ / Ref#: [id number] CC: [id number]/SILVANO YOO MD Performing Organization Address City/State/Zipcode Phone Number [facility] [address] [place] [address] after 11/25/2017 Insurance Payer Benefit Subscriber ID Type Phone Address Plan / Group [facility] MEDICARE BLUE xxxxxxxxxxxx PPO MEDICARE ADVANTAGE PPO Advance Directives Patient has advance care planning documents on file. For more information, sunil rojas contact: Chet Cartagena [address] [place] [address]
[2018-11-26] MEDS ORDERED: HYDROCODONE/APAP 7.5MG-325MG 1 EA TAB PO PRN (12:45)
[2018-11-26] MEDS ORDERED: LEVOFLOXACIN 500MG/D5W 100ML 100 ML IV SCH (12:45)
[2018-11-26 13:25] VITALS: BP 118/64
--- NOTE | 2018-11-26 13:25 | NUR ---
received to rm [id number] no distress noted, deneis pain at this time, sam to bsd with yellow/pink urine noted, r fa 20g no ss of infiltration noted, no other co voiced call light in reach will continue to monitor
[2018-11-26 13:42] VITALS: BP 118/64
[2018-11-26] MEDS: SODIUM CHLORIDE 0.9% 1000ML 1,000 ML IV SCH ×2 (14:22→22:32)
[2018-11-26 16:29] VITALS: BP 120/63
[2018-11-26] MEDS: METOPROLOL TARTRATE 25 MG TAB PO SCH (17:20)
[2018-11-26] MEDS: DOCUSATE SODIUM 100 MG CAP PO SCH (17:20)
--- NOTE | 2018-11-26 18:00 | NUR ---
SPOKE WITH DR RICHARD MURRAY: MEDICAL MANAGEMENT NEW ORDERS NOTED,
[2018-11-26] MEDS ORDERED: DEXAMETHASONE SOD PHOS INJ 4 MG/ML VIAL ONE (18:12)
[2018-11-26] MEDS ORDERED: ONDANSETRON HCL INJ 2MG/ML 2ML 2 MG/ML VIAL ONE (18:12)
[2018-11-26] MEDS ORDERED: PROPOFOL IV EMULSION 10 MG/ML 20 ML VIAL ONE (18:12)
[2018-11-26] MEDS ORDERED: LIDOCAINE HCL 2% LOCAL INJ 5 ML SDV VIAL INJ ONE (18:12)
[2018-11-26] MEDS ORDERED: DEXTROSE 50% SYRINGE 50 ML IV PRN (18:15)
[2018-11-26] MEDS ORDERED: MIDAZOLAM HCL 2 MG/2 ML VIAL ONE (18:42)
--- NOTE | 2018-11-26 18:59 | NUR ---
BEDSIDE REPORT GIVEN TO ONCOMING SHIFT, ALL QUESTIONS ANSWERED, PT IN STABLE CONDITION, BED LOW/LOCKED POSITION, CALL LIGHT IN REACH.
[2018-11-26] MEDS: INSULIN REGULAR, HUMAN 100 UNIT/1 ML 3ML VIAL SQ SCH (20:38)
--- NOTE | 2018-11-26 20:44 | Operative Report ---
DATE OF PROCEDURE: 11/26/2018 SURGEON: Greg Arreaga MD PREOPERATIVE DIAGNOSIS: Elevated prostate-specific antigen. POSTOPERATIVE DIAGNOSIS: Elevated prostate-specific antigen. OPERATION PERFORMED: Ultrasound-directed transrectal prostate biopsy. ANESTHESIA: IV sedation and monitored anesthesia care. INDICATIONS: This patient is a 68-year-old white male who has a PSA of 18.9 on September 22, 2018. He had had a previous prostate biopsy done in 2016 by another urologist and his PSA was 8.0 at that time, and then in 2016, it came back benign and his PSA was 8.0. He had a transrectal prostate biopsy in 2018 when his PSA was 12.2 and that was benign and he now has a prostate-specific antigen of 18.9 on September 22, 2018. He is in now to get his 3rd prostate biopsy. The patient has had cardiac clearance from his youth pastor, Dr. Yoo. For further details, please refer to the history and physical. The procedure was done in following fashion. DESCRIPTION OF THE PROCEDURE: The patient was taken to the operating room, placed under IV sedation, monitored anesthesia care and placed in a lateral decubitus position with the right side up. An ultrasound scan of the prostate was then performed. This revealed about a 20 g to 30 g prostate. There were no discrete hypoechoic areas. Couple of internal calcifications identified. The seminal vesicles appeared normal. Sextant biopsies of prostate were performed using the [employer] spring-loaded biopsy gun through the ultrasound probe. Specimens were taken from the right base lateral, then right base medial, then right mid lateral, then right mid medial, then right apex lateral, then right apex medial, then left base lateral, then left base medial, then left mid lateral, then left mid medial, then left apex lateral, then left apex medial. Once I had dozen good specimens, the ultrasound probe was removed and pressure was applied to the rectum because he had some bleeding from the hemorrhoids. The bleeding stopped after about 4 minutes of compression. The patient was returned to supine position and an 18-Kazakh Knott catheter inserted. The patient tolerated the procedure well, left the operating in good condition. Estimated blood loss was about 4 mL. Greg Arreaga MD CJ/MODL /[id number]
[2018-11-26] MEDS ORDERED: ATORVASTATIN 20 MG TAB PO SCH (21:00)
[2018-11-26 21:33] VITALS: BP 116/92
[2018-11-26 22:56] VITALS: BP 116/92
[2018-11-27] MEDS: SODIUM CHLORIDE 0.9% 1000ML 1,000 ML IV SCH (01:08)
[2018-11-27 01:19] VITALS: BP 121/63
[2018-11-27 05:22] VITALS: BP 115/68
[2018-11-27 05:44] LABS: BASOPHILS % 0.3 % (0.0-1.0); EOSINOPHILS # (AUTO) 0.2 (0.0-0.4); EOSINOPHILS % 1.5 % (0.0-6.0); HEMOGLOBIN 11.9 g/dL (14.0-18.0); LYMPHOCYTES # (AUTO) 1.4 (1.0-3.2); LYMPHOCYTES % 11.4 % (18.0-39.1); MEAN CORPUSCULAR HEMOGLOBIN 29.6 pg (28-32); MEAN CORPUSCULAR HGB CONC 32.2 g/dL (31-35); MONOCYTES # (AUTO) 1.5 (0.2-0.8); MONOCYTES % 12.2 % (4.4-11.3); NEUTROPHILS # (AUTO) 8.8 (2.1-6.9); NEUTROPHILS % 74.3 % (38.7-80.0); PLATELET COUNT 348 x10e3/uL (140-360); RED BLOOD COUNT 4.02 x10e6/uL (4.3-5.7); RED CELL DISTRIBUTION WIDTH 13.7 % (11.7-14.4)
[2018-11-27 06:03] LABS: BLOOD UREA NITROGEN 9 mg/dL (7-26); BUN/CREATININE RATIO 11 (6-25); CALCIUM 8.7 mg/dL (8.4-10.2); CARBON DIOXIDE 26 mmol/L (22-29); CHLORIDE 104 mmol/L (98-107); CHOL/HDL RATIO 2.3 (3.9-4.7); CHOLESTEROL 97 MD/DL (0-199); CREATININE, SERUM 0.85 mg/dL (0.72-1.25); EST GLOMERULAR FILTRATION RATE > 60 ML/MIN (60-); GLUCOSE 97 mg/dL (74-118); HDL CHOLESTEROL 42 MG/DL (40-60); LDL CHOLESTEROL 36 MG/DL (60-130); SODIUM 137 mmol/L (136-145); TRIGLYCERIDES 93 MG/DL (0-149)
--- NOTE | 2018-11-27 06:17 | NUR ---
Medical Consultation PCP none, Cardio Requesting physician: Reason: medical mgmt cc: elevated PSA HPI: 68yoM, admitted to hospital for prostate bx due to elevated PSA 18.9. Pt had bx past 2 previous years also for elevated PSA. He does have nocturia about 1/night; no frequency/urgency currently at home. PMH: elevated PSA 12 in 2018, now 18.9 in 2019, HTN, DM2, Current smoker, HLD, CAD s/p 2 stents in 2012, atherosclerotic heart disease, Hypertensive Heart disease PSHx: coronary stent x2 in 2012, prostate bx in 2018 and 2017, tonsillecoty, Allergies; see emr FH/SH: father lung cancer, DM in sister; ; 1ppd cigs; Meds; see MAR ROS: no f/c/s/N/V/D/PENNY/vision changes/dizziness/skin rash/back pain v/s; revd PE nad anicteric ns1s2 mod bs soft nt nd IZAGUIRRE in place scd b/l leg; no edema skin dry n. affect a&ox3; mccullough labs/med; revd A/P: 68yoM Elevated PSA DM2 CAD with hx stent 2012 Hypertensive heart disease HLD Current smoker PLAN izaguirre mgmt per f/u bx results with Hba1c/lipids/ADA diet resume home meds Counseled on cig cessation- pt has chantix at home scd Dispo: f/u with for further urologic mgmt; f/u with me in 1 week for medical mgmt. Obie Morton MD, PhD.
--- NOTE | 2018-11-27 06:32 | NUR ---
IZAGUIRRE CATH REMOVED AT THIS TIME PER MD ORDERS. PATIENT TOLERATED WELL. DTV
--- NOTE | 2018-11-27 07:00 | NUR ---
bedside rounds complete no distress noted,updated on poc vocied understanding, denies pain at this time, ivf infusing to r fa 20g no ss of infiltration noted, urine clear pink/yellowish, call light in reach will continue ot monitor
[2018-11-27 07:27] VITALS: BP 136/66
[2018-11-27] MEDS: INSULIN REGULAR, HUMAN 100 UNIT/1 ML 3ML VIAL SQ SCH (07:30)
[2018-11-27] MEDS: DOCUSATE SODIUM 100 MG CAP PO SCH (08:43)
[2018-11-27] MEDS: METOPROLOL TARTRATE 25 MG TAB PO SCH (08:43)
[2018-11-27 08:49] VITALS: BP 136/66
[2018-11-27] MEDS ORDERED: ASPIRIN 81 MG CHEW TAB PO SCH (09:00)
[2018-11-27] MEDS ORDERED: LISINOPRIL 2.5 MG TAB PO SCH (09:00)
[2018-11-27] MEDS ORDERED: CLOPIDOGREL BISULFATE 75 MG TAB PO SCH (09:00)
[2018-11-27] MEDS ORDERED: MACROBID 100 M100 MG PO (10:53)
--- NOTE | 2018-11-27 14:32 | Progress Note ---
DATE: 11/27/2018 Discharge Progress Note The patient is now 1 day, status post ultrasound-directed transrectal prostate biopsy. He is afebrile. Knott catheter was removed. He is voiding without difficulty. My plan at this time is to discharge the patient. He will complete his course of metronidazole at home. I am sending him home additionally on Macrobid 100 mg p.o. twice daily for 10 days. He will have return appointment to see me again in 2 weeks for followup to go over the results of the biopsy. Greg Arreaga MD SRA/MODL /[id number]
[2018-11-27] MEDS ORDERED: NITROFURANTOIN MACROCRYSTALS 100 MG CAP PO SCH (17:00)
== END 2018-11-27 11:33 | disposition home or self-care (01) ==
LOC: OR 10:41 → PACU V 12:35 → MED/SURG 13:17
PROVIDERS: ADMIT Urology; ATTEND Urology
DX: C61 Malignant neoplasm of prostate (principal); Z01.812 Encounter for preprocedural laboratory examination; Z01.811 Encounter for preprocedural respiratory examination; I25.10 Atherosclerotic heart disease of native coronary artery without angina pectoris; E11.9 Type 2 diabetes mellitus without complications; I11.9 Hypertensive heart disease without heart failure; E78.00 Pure hypercholesterolemia, unspecified; K64.4 Residual hemorrhoidal skin tags; Z88.0 Allergy status to penicillin; F17.210 Nicotine dependence, cigarettes, uncomplicated; E78.5 Hyperlipidemia, unspecified; Z95.5 Presence of coronary angioplasty implant and graft; Z79.84 Long term (current) use of oral hypoglycemic drugs; Z83.3 Family history of diabetes mellitus; Z82.49 Family history of ischemic heart disease and other diseases of the circulatory system; Z80.1 Family history of malignant neoplasm of trachea, bronchus and lung
CPT/HCPCS: 36415 ×3; 55700; 71046; 76872; 80048; 80053; 80061; 82948; 83036; 85025; 85610; 85730; 88305; G0378 ×2; J1100; J1956; J2001; J2250; J2405; J2704; J7030; 88342